=== PATIENT | male | born 1960 | race American Indian/Alaskan Native ===

== ENCOUNTER 2018-02-10 14:26 | Emergency (ER) | payer OTHER ==
[2018-02-10] MEDS ORDERED: MOTRIN ONE (18:13)
[2018-02-10] MEDS ORDERED: DELTASONE ONE ×2 (18:13)
[2018-02-10] MEDS ORDERED: ULTRAM ONE (18:13)
[2018-02-10] MEDS ORDERED: DELTASONE PO ONE ×2 (18:13→18:14)
[2018-02-10] MEDS ORDERED: ULTRAM PO ONE (18:15)
[2018-02-10] MEDS ORDERED: MOTRIN PO ONE (18:15)
--- NOTE | 2018-02-10 19:57 | Emergency Department Report ---
ED Upper Extremity Inj HPI - General Chief Complaint: Extremity Problem,Nontraumatic Stated Complaint: RT ARM PAIN Time Seen by Provider: 02/10/18 19:28 Source: patient Mode of arrival: Ambulatory Limitations: No Limitations - History of Present Illness Initial Comments: Patient is a 57-year-old Afro-[place] male with history of gout yesterday regarding exacerbation of left elbow complains of 6/10 pain exacerbated by movement elbow is warm to touch moderate swelling there is no numbness no tingling or paralysis range of motion is intact patient is on a gout medication unknown type as it's been greater than a year since she's had it last MD Complaint: Injury to:: left, elbow Onset/Timin -: days(s) Other Extremity Injury: Elbow: Left Other Injuries: none Place: home Severity scale (0 -10): 4 Improves With: none Worsens With: movement of extremity Context: other (gout ) Associated Symptoms: denies: weakness, numbness - Related Data Previous Rx's Medication Instructions Recorded Last Taken Type HYDROcodone/APAP 5-325 [[place] 1 each PO Q6HR PRN #10 tablet 06/14/15 Unknown Rx 5/325] Lisinopril [Zestril TAB] 20 mg PO DAILY #30 tablet 06/14/15 Unknown Rx NIFEdipine XL [Procardia Xl] 60 mg PO QDAY #30 tablet 06/14/15 Unknown Rx Indomethacin 50 mg PO Q8H 10 Days #30 capsule 02/10/18 Unknown Rx predniSONE [Deltasone] 40 mg PO QDAY 5 Days #10 tab 02/10/18 Unknown Rx Allergies Allergy/AdvReac Type Severity Reaction Status Date / Time No Known Allergies Allergy Verified 07/12/14 02:09 ED Review of Systems ROS: Stated complaint: RT ARM PAIN Other details as noted in HPI Constitutional: denies: chills, fever Eyes: denies: eye pain, eye discharge, vision change ENT: denies: ear pain, throat pain Respiratory: denies: cough, shortness of breath, wheezing Cardiovascular: denies: chest pain, palpitations Endocrine: no symptoms reported Gastrointestinal: denies: abdominal pain, nausea, diarrhea Genitourinary: denies: urgency, dysuria Musculoskeletal: joint swelling, arthralgia, myalgia Skin: denies: rash, lesions Neurological: denies: headache, weakness, paresthesias Psychiatric: denies: anxiety, depression Hematological/Lymphatic: denies: easy bleeding, easy bruising ED Past Medical Hx - Past Medical History Previous Medical History?: Yes Hx Hypertension: Yes - Surgical History Past Surgical History?: No - Social History Smoking Status: Never Smoker Substance Use Type: None - Medications Home Medications: Home Medications Medication Instructions Recorded Confirmed Last Taken Type HYDROcodone/APAP 5-325 [[place] 1 each PO Q6HR PRN #10 tablet 06/14/15 Unknown Rx 5/325] Lisinopril [Zestril TAB] 20 mg PO DAILY #30 tablet 06/14/15 Unknown Rx NIFEdipine XL [Procardia Xl] 60 mg PO QDAY #30 tablet 06/14/15 Unknown Rx Indomethacin 50 mg PO Q8H 10 Days #30 capsule 02/10/18 Unknown Rx predniSONE [Deltasone] 40 mg PO QDAY 5 Days #10 tab 02/10/18 Unknown Rx ED Physical Exam - General Limitations: No Limitations General appearance: alert, in no apparent distress - Head Head exam: Present: atraumatic, normocephalic - Eye Eye exam: Present: normal appearance - ENT ENT exam: Present: mucous membranes moist - Neck Neck exam: Present: normal inspection - Respiratory Respiratory exam: Present: normal lung sounds bilaterally. Absent: respiratory distress - Cardiovascular Cardiovascular Exam: Present: regular rate, normal rhythm. Absent: systolic murmur, diastolic murmur, rubs, gallop - GI/Abdominal GI/Abdominal exam: Present: soft, normal bowel sounds - Rectal Rectal exam: Present: deferred - Extremities Exam Extremities exam: Present: normal inspection, tenderness, joint swelling - Expanded Upper Extremity Exam Left Elbow exam: Present: tenderness, swelling, pain w/ pronation/supination. Absent : abrasion, laceration, ecchymosis, deformity, crepidus, dislocation, erythema, effusion, tenderness over radial head Forearm Wrist exam: Present: normal inspection, full ROM Hand Wrist exam: Present: normal inspection, full ROM Neuro motor exam: Present: wrist extension intact, thumb opposition intact, thumb IP flexion intact, thumb adduction intact, fingers 2-5 abduction intact Neurosensory exam: Present: 2-point discrimination, radial nerve intact, ulnar nerve intact, median nerve intact Vascular: Present: normal capillary refill, radial pulse, brachial pulse, ulnar pulse. Absent: vascular compromise, pulse deficit radial art, pulse deficit ulnar art, pulse deficit brachial art - Back Exam Back exam: Present: normal inspection - Neurological Exam Neurological exam: Present: alert, oriented X3 - Psychiatric Psychiatric exam: Present: normal affect, normal mood - Skin Skin exam: Present: warm, dry, intact, normal color. Absent: rash ED Course Vital Signs 02/10/18 02/10/18 14:53 18:44 Temperature 98.8 F Pulse Rate 91 H Respiratory 16 18 Rate Blood Pressure 154/95 O2 Sat by Pulse 96 Oximetry ED Medical Decision Making - Medical Decision Making Is a gout exacerbation plan steroid burst indomethacin patient will follow with PCP in 2-3 days patient will return to ED should symptoms worsen patient verbalizes agreement and understanding with discharge plan patient will DC home in stable condition at this time pain is reduced range of motion at abaseline in left elbow. Critical care attestation.: If time is entered above; I have spent that time in minutes in the direct care of this critically ill patient, excluding procedure time. ED Disposition Clinical Impression: Gout attack Qualifiers: Gout site: elbow Gout etiology: idiopathic Laterality: left Qualified Code(s): M10.022 - Idiopathic gout, left elbow Disposition: DC-01 TO HOME OR SELFCARE Is pt being admited?: No Does the pt Need Aspirin: No Condition: Good Instructions: Acute Gouty Arthritis (ED) Prescriptions: Indomethacin 50 mg PO Q8H 10 Days #30 capsule predniSONE [Deltasone] 40 mg PO QDAY 5 Days #10 tab Referrals: PRIMARY CARE, [Primary Care Provider] - 3-5 Days Forms: Work/School Release Form(ED) Time of Disposition: 20:03
[2018-02-10 20:10] VITALS: BP 146/76
== END 2018-02-10 20:08 | disposition home or self-care (01) ==
LOC: ED 14:26
DX: M10.022 Idiopathic gout, left elbow (principal); I10 Essential (primary) hypertension
CPT/HCPCS: 99282; J7512